=== PATIENT | female | born 2005 | race Caucasian/White ===

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

== ENCOUNTER 2025-09-04 11:17 | Emergency (ER) | payer OTHER, SELFPAY ==
--- NOTE | ~2025-09-04 | CT_ITS ---
CLINICAL HISTORY: RT lower quadrant pain CT abdomen and pelvis with contrast Comparison: None provided Findings: No consolidation or effusion. Unremarkable gallbladder. No biliary ductal dilatation. The liver, spleen, pancreas, adrenal glands and kidneys are unremarkable. No ureteral stones and no hydronephrosis or hydroureter. No perinephric stranding. No bowel obstruction, pneumoperitoneum, or pneumatosis. No free fluid or loculated fluid collection. Pelvic contents unremarkable. Bilateral ovarian follicles. Normal appendix. Normal size abdominal aorta. The bones are intact. IMPRESSION: No acute findings. Appendix is normal. This document has been electronically signed by: Nikky Lowry MD on 09/04/2025 15:51:18
[2025-09-04 11:20] VITALS: BP 141/72; PULSE 80; RESP 18; O2SAT 98; BMI 23.3
--- NOTE | 2025-09-04 11:20 | ED.ABDPAIN ---
HPI - Abdominal Pain General Chief Complaint: Abdominal Pain Stated Complaint: General Medical Time Seen by Provider: 09/04/25 12:11 Source: patient Mode of arrival: ambulatory Limitations: no limitations History of Present Illness HPI narrative: This is a 20 years old female referred to us from the urgent care because of right lower quadrant abdominal pain, a UA was done of the urgent care was negative COVID test was done was negative hCG was done negative as well MD elicited complaint: abdominal pain Pertinent past history: none Onset (ago): day(s) (1) Pain Consistency: constant Location: RLQ Severity: moderate Quality: cramping Radiation: none Migration to: no migration Exacerbating factors: nothing Related Data Patient : No Allergies Allergy/AdvReac Type Severity Reaction Status Date / Time No Known Allergies Allergy Verified 09/04/25 11:21 Review of Systems Constitutional: Reports no additional constitutional complaints Reports system reviewed and no additional complaints, except as documented [facility] Past Medical History Attestation statement: The following information was validated with the patient. [facility] Narrative: Denies any major medical problems Social History Social History Advance Directives: No Advance Directives Information Provided: No Do you have a plan to hurt others: No Plan Patient : No Physical Exam ED Exam Exam: No acute distress Vital Signs: Vital Signs - 24 hr 09/04/25 11:20 Pulse Rate 80 Respiratory Rate 18 Blood Pressure 141/72 H Pulse Oximetry 98 Oxygen Delivery Method Room Air BMI result Body Mass Index 23.3 Const General: cooperative HENMT Head: Yes normal to inspection General nose exam: Normal external nose present Face and sinus: Yes normal facial exam Neck Neck: Yes normal visual inspection Chest Chest palpation & inspection: normal inspection of the chest Resp Effort & Inspection: normal respiratory effort Auscultation: clear to auscultation bilaterally Cardio Jugular venous distension: no JVD Rate: regular rate Rhythm: regular rhythm GI Inspection: Yes normal to inspection Palpation (GI): Soft to palpation and Tenderness to palpation present (GI) in the RLQ Auscultation: normal bowel sounds Skin General skin exam: no rashes or lesions noted and elasticity normal Lesions: no lesions Rashes: no rashes Course Course Course Narrative: This is a Rapid Medical Examination (RME) performed by R. Raimonde PA-C in triage. Full HPI, ROS, assessment and treatment plan per primary provider in the Main ED. Hx: 20 yo F here for eval of RLQ abd pain x24 hours. nausea, no vomiting. no hx of abd surgeries. currently on her menstrual period. seen at - sent here for imaging. Plan: labs, UA Medical Decision Making Medical Decision Making [facility] Narrative: Patient is here for quadrant with the pain we will obtain imaging UA 16:26 CT scan of the abdomen and pelvis is negative normal appendix labs normal, I reviewed the UA done at the urgent care which was normal at this point I think the patient can be safely discharged home, discussed with the mother as well, mother and daughter comfortable with the plan Differential Diagnosis Differential Diagnoses: The differential diagnosis associated with the presentation includes Appendicitis/UTI/kidney stone Admission/Observation Consideration of admission/observation: Escalation of care including admission/observation considered Lab Data [facility] Lab Attestation statement: I reviewed the patient's lab results. 09/04/25 11:28 09/04/25 11:28 Labs: Lab Results 09/04/25 Range/Units 11:28 WBC 7.5 (4.8-10.8) X10*3/uL RBC 4.34 (4.20-5.50) X10*6/uL Hgb 13.8 (12.0-16.0) g/dl Hct 38.3 (37.0-47.0) % MCV 88.2 (80.0-98.0) fL MCH 31.8 (27.0-33.0) pg MCHC 36.0 H (31.0-35.0) g/dl RDW 11.5 (11.0-16.0) % Plt Count 362 (160-400) X10*3/uL MPV 8.7 L (9.4-12.3) fL Immature Gran % (Auto) 0.3 (0.0-0.4) % Neut % (Auto) 50.5 (45-73) % Lymph % (Auto) 36.2 (20-40) % Sevier % (Auto) 8.9 (2-11) % Eos % (Auto) 3.6 (0-4) % Baso % (Auto) 0.5 (0-2) % Lymph # (Auto) 2.7 (1.2-4.9) X10*3/uL Sevier # (Auto) 0.7 (0.1-1.2) X10*3/uL Eos # (Auto) 0.3 (0.0-0.4) X10*3/uL Baso # (Auto) 0.0 (0.0-0.2) X10*3/uL Abs Immat Gran (auto) 0.02 (0.00-0.03) X10*3/uL Absolute Neuts (auto) 3.8 (2.0-8.3) x10*3/uL Absolute Nucleated RBC 0.000 (0.0-0.012) X10*3/uL Nucleated RBC % (auto) 0.0 (0.0-0.2) /100WBC Sodium 141 (135-145) mmol/L Potassium 4.0 (3.3-5.1) mmol/L Chloride 109 H (96-108) mmol/L Carbon Dioxide 24 (22-29) mmol/L Anion Gap 12 (12-20) BUN 9 (9-16) mg/dL Creatinine 0.80 (0.5-1.4) mg/dL Estim Creat Clear Calc 100.9 Estimated GFR > 60 Random Glucose 95 (60-115) mg/dL Calcium 9.5 (8.4-10.2) mg/dL Magnesium 1.9 (1.6-2.6) mg/dL Total Bilirubin 0.6 (0.0-1.0) mg/dL AST 29 (5-31) U/L ALT 23 (0-31) U/L Alkaline Phosphatase 60 (39-117) U/L C-Reactive Protein 0.37 (< or = 0.50) mg/dL Total Protein 7.6 (6.5-8.0) g/dL Albumin 4.6 (3.5-5.0) g/dL Beta HCG, Quant < 2 mIU/mL Independent Interpretation I performed an independent interpretation of an: CT Scan Interpretation: No acute disease Radiology Impression Discussion of test interpretation with radiology: I have reviewed the radiologist's reading. Radiologist Impression: CT abdomen and pelvis with contrast Comparison: None provided Findings: No consolidation or effusion. Unremarkable gallbladder. No biliary ductal dilatation. The liver, spleen, pancreas, adrenal glands and kidneys are unremarkable. No ureteral stones and no hydronephrosis or hydroureter. No perinephric stranding. No bowel obstruction, pneumoperitoneum, or pneumatosis. No free fluid or loculated fluid collection. Pelvic contents unremarkable. Bilateral ovarian follicles. Normal appendix. Normal size abdominal aorta. The bones are intact. IMPRESSION: No acute findings. Appendix is normal. This document has been electronically signed by: Nikky Lowry MD on 09/04/2025 15:51:18 Dictated By: Nikky Lowry MD Signed By: <Electronically signed by Nikky Lowry MD in OV> 09/04/25 1552 Independent Historian Clinical information obtained from an independent historian. History obtained from or confirmed by: Parent (mother) Medications Administered Discontinued Medications Generic Name Dose Route Start Last Admin Trade Name Freq PRN Reason Stop Dose Admin Ketorolac Tromethamine 15 mg 09/04/25 16:02 09/04/25 16:06 Ketorolac Tromethamine 15 Mg/Ml Vial IVPUSH 09/04/25 16:03 15 mg ONCE ONE Administration Discharge Plan Discharge Clinical Impression: Abdominal pain Qualifiers: Abdominal location: right lower quadrant Qualified Code(s): R10.31 - Right lower quadrant pain Patient Disposition: Home, Self-Care Instructions: Abdominal Pain (ED) Additional Instructions: Follow-up with your primary care physician call and make an appointment, stay on liquid diet for 24 hour, return to the emergency room if you have vomiting if you have a fever if you have worsening of the pain. As we discussed the CAT scan was normal your blood work was normal Print Language: Italian
[2025-09-04 11:31] LABS: MANUAL DIFF FLAG NO
[2025-09-04 11:33] LABS: Hematocrit 38.3 % (37.0-47.0); Hemoglobin 13.8 g/dl (12.0-16.0); Imm Gran Abs Auto 0.02 X10*3/uL (0.00-0.03); Imm Gran Pct Auto 0.3 % (0.0-0.4); Lymphocytes Absolute Auto 2.7 X10*3/uL (1.2-4.9); Mean Corpuscular HGB Conc 36.0 g/dl (31.0-35.0); Mean Corpuscular Hemoglobin 31.8 pg (27.0-33.0); Mean Corpuscular Volume 88.2 fL (80.0-98.0); NRBC Abs Auto 0.000 X10*3/uL (0.0-0.012); NRBC Pct Auto 0.0 /100WBC (0.0-0.2); Platelet Count 362 X10*3/uL (160-400); Red Blood Count 4.34 X10*6/uL (4.20-5.50); White Blood Count 7.5 X10*3/uL (4.8-10.8)
--- OUTSIDE RECORDS SUMMARY | 2025-09-04 12:16 | XMS_ITS | Encounter Summary ---
Author Organization [facility] Address [address] [place] [address] Care Team Providers Care Sales Forecast Analyst Name Role Phone María Elena Castelan MD Primary Care Provider Anitra Kulkarni Primary Care Provider [phone] Encounter Details Date Type Department Care Team ([facility] st Contact Info) Description 06/13/2015 Orders Only [facility] [address] [place] [phone] María Elena Castelan MD Social History Tobacco Use Types Packs/Day Years Used Date Smoking Tobacco: Never Assessed Comments Unknown Sex and Gender Information Value Date Recorded Sex Assigned at Not on file Legal Sex Female 9:23 PM EDT Gender Identity Not on file Sexual Orientation Not on file documented as of this encounter Plan of Treatment Not on file documented as of this encounter Procedures * Due to [place] state law, this organization might not be sharing negative HIV tests. Procedure Name Priority Date/Time Associated Diagnosis Comments C-REACTIVE PROTEIN (CRP) - INFLAMMATION Routine 06/13/2015 11:27 AM EDT Chronic abdominal pain CBC INCLUDES DIFFERENTIAL AND PLATELET COUNT Routine 06/13/2015 11:27 AM EDT Chronic abdominal pain CELIAC DISEASE COMPREHENSIVE PANEL Routine 06/13/2015 11:27 AM EDT Chronic abdominal pain COMPREHENSIVE METABOLIC PANEL WITH GFR Routine 06/13/2015 11:27 AM EDT Chronic abdominal pain documented in this encounter Results * Due to [place] state law, this organization might not be sharing negative HIV tests. * C-REACTIVE PROTEIN (CRP) - INFLAMMATION (06/13/2015 11:27 AM EDT) C reactive protein <0.10 <0.80 mg/dL [facility] Comment: {C-REACTIVE PROTEIN {[id number]) Please be advised that patients taking Carboxypenicillins may exhibit falsely decreased C-Reactive Protein levels due to an analytical interference in this assay. 06/13/2015 11:2 7 AM EDT 06/13/2015 10:42 PM EDT Narrative Resulting Agency Comment [id number] María Elena Castelan MD LABORATORY Final Result [facility] [address] [place] [address] * COMPREHENSIVE METABOLIC PANEL WITH GFR (06/13/2015 11:27 AM EDT) Glucose 74 65 - 99 mg/dL [facility] Comment: {GLUCOSE {[id number]) Fasting reference interval Urea Nitrogen Blood (BUN) 11 7 - 20 mg/dL [facility] Comment:{UREA NITROGEN (BUN) {[id number]) Creatinine 0.50 0.20 - 0.73 mg/dL [facility] Comment: {CREATININE {[id number]) Patient is <18 years old. Unable to calculate eGFR. BUN/Creatinine Ratio NOT APPLICABLE 6 (calc) [facility] Comment:{BUN/CREATININE RATI O {[id number]) Sodium 139 135 - 146 mmol/L [facility] Comment:{SODIUM {[id number]) Potassium 4.2 3.8 - 5.1 mmol/L [facility] Comment:{POTASSIUM {[id number]) Chloride 105 98 - 110 mmol/L [facility] Comment:{CHLORIDE {[id number]) Carbon dioxide 23 19 - 30 mmol/L [facility] Comment:{CARBON DIOXIDE {[id number]) Calcium 10.0 8.9 - 10.4 mg/dL [facility] Comment:{CALCIUM {[id number]) Protein Total (Serum) 7.3 6.3 - 8.2 g/dL [facility] Comment:{PROTEIN, TOTAL {[id number]) Albumin 4.8 3.6 - 5.1 g/dL [facility] Comment:{ALBUMIN {[id number]) Globulin 2.5 2.0 - 3.8 g/dL (calc) [facility] Comment:{GLOBULIN {[id number]) Albumin/Globuli n 1.9 1.0 - 2.5 (calc) [facility] Comment:{ALBUMIN/GLOBULIN RA MEG {[id number]) Bilirubin Total 0.4 0.2 - 0.8 mg/dL [facility] Comment:{BILIRUBIN, TOTAL {[id number]) Alkaline phosphatase 270 184 - 415 U/L [facility] Comment:{ALKALINE PHOSPHATAS E {[id number]) AST (SGOT) 24 12 - 32 U/L [facility] Comment:{AST {[id number]) ALT (SGPT) 13 8 - 24 U/L [facility] Comment:{ALT {[id number]) 06/13/2015 11:2 7 AM EDT 06/13/2015 10:42 PM EDT Narrative [facility] - 06/14/2015 9:10 AM EDT Please note that this estimated GFR does not include an adjustment for the patient's height or weight, and can therefore, be viewed as reliable only for patients with heights between 60 and 72 . More precise quantification using a 24-hour urine sample or height-based algorithm is recommended for patients outside of this range of height and for those individuals with more precise needs for GFR calculation. Resulting Agency Comment [id number] María Elena Castelan MD LABORATORY Final Result [facility] [address] [place] [address] * (ABNORMAL) CBC INCLUDES DIFFERENTIAL AND PLATELET COUNT (06/13/2015 11:27 AM EDT) WBC 5.6 4.5 - 13.5 Thousand/u L [facility] Comment:{WHITE BLOOD CELL CO UNT {[id number]) RBC 4.66 4.00 - 5.20 Million/uL [facility] Comment:{RED BLOOD CELL COUN T {[id number]) Hemoglobin 13.9 11.5 - 15.5 g/dL [facility] Comment:{HEMOGLOBIN {[id number]) Hematocrit 42.0 35.0 - 45.0 % [facility] Comment:{HEMATOCRIT {[id number]) MCV 90.1 77.0 - 95.0 fL [facility] Comment:{MCV {[id number]) MCH 29.8 25.0 - 33.0 pg [facility] Comment:{MCH {[id number]) MCHC 33.0 31.0 - 36.0 g/dL [facility] Comment:{MCHC {[id number]) RDW 12.4 11.0 - 15.0 % [facility] Comment:{RDW {[id number]) PLT 329 140 - 400 Thousand/u L [facility] Comment:{PLATELET COUNT {[id number]) MPV 7.4(L) 7.5 - 11.5 fL [facility] Comment:{MPV {[id number]) Neutrophils # 1837 1500 - 8000 cells/uL [facility] Comment:{ABSOLUTE NEUTROPHIL S {[id number]) Lymphocytes # 2873 1500 - 6500 cells/uL [facility] Comment:{ABSOLUTE LYMPHOCYTE S {[id number]) Monocytes # 549 200 - 900 cells/uL [facility] Comment:{ABSOLUTE MONOCYTES {[id number]) Eosinophils # 314 15 - 500 cells/uL [facility] Comment:{ABSOLUTE EOSINOPHIL S {[id number]) Basophils # 28 0 - 200 cells/uL [facility] Comment:{ABSOLUTE BASOPHILS {[id number]) Neutrophils % 32.8 % [facility] Comment:{NEUTROPHILS {[id number]) Lymphocytes % 51.3 % [facility] Comment:{LYMPHOCYTES {[id number]) Monocytes % 9.8 % [facility] Comment:{MONOCYTES {[id number]) Eosinophils % 5.6 % [facility] Comment:{EOSINOPHILS {[id number]) Basophils % 0.5 % [facility] Comment:{BASOPHILS {[id number]) 06/13/2015 11:2 7 AM EDT 06/13/2015 10:42 PM EDT Narrative Resulting Agency Comment [id number] María Elena Castelan MD LAB SAME DAY RESULT Final Resul t Performing Organization Address City/[facility] Co de Phone Number [facility] [address] [place] [address] * CELIAC DISEASE COMPREHENSIVE PANEL (06/13/2015 11:27 AM EDT) INTERPRETATION SEE NOTE [facility] Comment: {INTERPRETATION {[id number]) No serological evidence of celiac disease. tTG IgA may normalize in individuals with celiac disease who maintain a gluten-free diet. Consider HLA DQ2 and DQ8 testing to rule out celiac disease. Celiac disease is extremely rare in the absence of DQ2 or DQ8. (TTG) AB, IGA 1 U/mL [facility] Comment: {TISSUE TRANSGLUTAMINASE AB, IGA {[id number]) Value Interpretation ----- <4 No Antibody Detected > or = 4 Antibody Detected IgA 175 41 - 368 mg/dL [facility] Comment:{IMMUNOGLOBULIN A {[id number]) 06/13/2015 11:2 7 AM EDT 06/13/2015 10:42 PM EDT Narrative Resulting Agency Comment [id number] María Elena Castelan MD LABORATORY Final Result Performing Organization Address [facility] Co de Phone Number [facility] [address] [place] [address] documented in this encounter Visit Diagnoses Diagnosis Chronic abdominal pain Abdominal pain, unspecified site documented in this encounter Care Teams Sales Forecast Analyst Relationship Specialty Start Date End Date María Elena Castelan MD PCP - General 05 05/16/16 Anitra Marques [facility] [address] [address] PCP - General Pediatrics 05/17/16 documented as of this encounter
--- OUTSIDE RECORDS SUMMARY | 2025-09-04 12:16 | XMS_ITS | Clinical Summary ---
Author Organization [facility] sp[facility] Address [address] [place] [address] Phone Care Team Providers Care Labor Arbitrator Name Role Phone Anitra Marques MD Unavailable [phone] Anitra Marques MD Primary Care Provider [phone] Anitra Marques MD Unavailable [phone] Olayinka Jha MD Unavailable [phone] Jose Martin Guajardo MD Unavailable [phone] Farrukh Cueto MD Unavailable [phone] Whitney Linares Unavailable [phone] Allergies No known active allergies Medications Aurovela 1.5/30, 21, 1.5-30 mg-mcg tabletIndication s:Please take as previously prescribed Take 1 tablet by mouth 1 time each day. Active albuterol HFA 90 mcg/act inhalerIndicatio ns:Please take as previously prescribed Inhale 2 puffs every 4 hours if needed (Exercise). 05/01/2024 Active Samina Alonso [facility] inhaler 1 each 4 times a day as needed (exercise). 05/02/2024 Active levothyroxine 25 mcg tablet Take 25 mcg by mouth every morning. 02/15/2025 Active Active Problems Problem Noted Date Diagnosed Date ROE positive 03/04/2025 Raynaud's disease without gangrene 03/04/2025 Hypothyroidism 03/04/2025 Concussion with no loss of consciousness 025 Nonsustained supraventricular tachycardia 2023 Wide-complex tachycardia 05/13/2024 Tachycardia 04/17/2024 Chronic abdominal pain 04/17/2024 Left ovarian cyst 10/24/2021 Overview (08/26/2024): U/S done in ED on 10/24/21. Menorrhagia with irregular cycle 08/03/2021 Dysmenorrhea 09/21/2020 Irritable bowel syndrome with constipation 08/20 Overview (08/26/2024): ED visit 09/2021. 10/30/21 - GI visit; probable long-standing IBS; started on Culturelle bid; work up ordered to r/o celiac and IBD and u/s for evaluation of biliary pathology 02/12/22 - normal endoscopic exam; likely IBS. Has used Miralax off and on. Nearly daily complaint of stomach ache. Update - did very well on daily Miralax, changed to Pedialax at recommendation of [facility], symptoms recurred when off Pedialax for several weeks. Encouraged to go back on medication. Resolved Problems Problem Noted Date Diagnosed Date Resolved Date Iron excess 08/26/2024 03/04/2025 Family History Medical History Relation Name Comments Hypothyroidism Father Heart attack Maternal Grandmother Heart attack Paternal Grandfather Heart attack Paternal Grandmother Clotting disorder Neg Hx [id number] deficiency Neg Hx Malig Hyperthermia Neg Hx Mastocytosis Neg Hx Pseudochol deficiency Neg Hx Sudden Neg Hx Relation Name Status Comments Father Maternal Grandmother Paternal Grandfather Paternal Grandmother Social History Tobacco Use Types Packs/Day Years Used Date Smoking Tobacco: Never Smokeless Tobacco: Never Tobacco Cessation:Counseling Given: Not Answered Alcohol Use Standard Drinks/Week Comments Never 0 (1 standard drink = 0.6 oz pur e alcohol) Comments Unknown Sex and Gender Information Value Date Recorded Sex Assigned at Not on file Legal Sex Female 11:45 PM EDT Gender Identity Not on file Sexual Orientation Not on file Last Filed Vital Signs Vital Sign Reading Time Taken Comments Blood Pressure 117/61 02/08/2025 10:41 AM EDT Pulse 90 02/08/2025 10:41 AM EDT Temperature 36.6 C (97.9 F) 09/15/2024 5:00 PM EST Respiratory Rate 15 09/15/2024 5:00 PM EST Oxygen Saturation 100% 02/08/2025 10: 41 AM EDT Inhaled Oxygen Concentration - - Weight 70.6 kg (155 lb 10.3 oz) 025 10:41 AM EDT Height 165.2 cm (5' 5.04 ) 02/08/2025 1 0:41 AM EDT Body Mass Index 25.87 02/08/2025 10:41 AM EDT Plan of Treatment Health Maintenance Due Date Last Done Comments Chlamydia and Gonorrhea Screening 2005 HIV Screening 2005 Meningococcal B Vaccine (1 of 2 - Standard) 2021 Hepatitis C Screening 2023 Influenza Vaccine (#1) 2025 , 09/21/2020, 08/10/2011, Additional history exists DTaP/Tdap/Td Vaccines (7 - Td or Tdap) 08/01/2026 08/01/2016, 07/27/2009, 10/28/2006, Additional history exists Anemia Screening 09/14/2029 09/14/2024, , 08/26/2024, Additional history exists Hepatitis B Vaccines Completed 01/18/2006, 2005, 2005, Additional history exists Pneumococcal Vaccine: Pediatrics (0 to 5 Years) and At-Risk Patients (6 to 49 Years) Aged Out 07/29/2006, 01/18/2006, 2005, Additional history exists No longer eligible based on patient's age to complete this topic HIB Vaccines Completed 10/28/2006, 12/30, 2005, Additional history exists Hepatitis A Vaccines Completed 01/27/2007, 07/29/20 06 IPV Vaccines Completed 07/27/2009, 12/30, 2005, Additional history exists MMR Vaccines Completed 07/27/2009 Varicella Vaccines Completed 07/27/2009, 10/28/2006 HPV Vaccines Completed 03/18/2019, 09/16/2018 Meningococcal Vaccine Completed 09/21/2021, 016 Rotavirus Vaccines Aged Out No longer eligible based on patient's age to complete this topic Procedures Procedure Name Priority Date/Time Associated Diagnosis Comments CBC WITH AUTO DIFFERENTIAL - NON ORDERABLE Routine 09/14/2024 1:40 PM EST Nonsustained supraventricular tachycardia (HCC) from Last 3 Months or Most Recently Relevant to Health Maintenance Results * (ABNORMAL) CBC and differential (09/14/2024 1:40 PM EST) WBC 6.11 4.94 - 10.04 K cells/uL LAB HEMATOLOGY METHOD 09/14/2024 3:13 PM EST [facility] RBC 4.54 4.03 - 4.91 M cells/uL LAB HEMATOLOGY METHOD 09/14/2024 3:13 PM EST [facility] Hemoglobin 14.1 11.4 - 14.8 g/dL LAB HEMATOLOGY METHOD 09/14/2024 3:13 PM [facility] Hematocrit 40.6 35.5 - 44.6 % LAB HEMATOLOGY METHOD 09/14/2024 3:13 PM EST [facility] MCV 89.4 80.7 - 93.7 fL LAB HEMATOLOGY METHOD 09/14/2024 3:13 PM EST [facility] MCH 31.1 25.7 - 31.2 pg LAB HEMATOLOGY METHOD 09/14/2024 3:13 PM EST [facility] MCHC 34.7(H) 31.3 - 34.0 g/dL LAB HEMATOLOGY METHOD 09/14/2024 3:13 PM [facility] RDW 11.9 11.9 - 14.8 % LAB HEMATOLOGY METHOD 09/14/2024 3:13 PM EST [facility] Platelets 328 199 - 352 K cells/uL LAB HEMATOLOGY METHOD 09/14/2024 3:13 PM [facility] MPV 8.8(L) 9.6 - 11.9 fL LAB HEMATOLOGY METHOD 09/14/2024 3:13 PM EST [facility] Nucleated RBCs % 0.0 % LAB HEMATOLOGY METHOD 09/14/2024 3:13 PM [facility] Absolute Nucleated RBC Count 0.00 K cells/uL LAB HEMATOLOGY METHOD 09/14/2024 3:13 PM [facility] Neutrophils and Bands % 36.2(L) 46.0 - 68.6 % LAB HEMATOLOGY METHOD 09/14/2024 3:13 PM [facility] Lymphocytes % 39.9 21.8 - 42.1 % LAB HEMATOLOGY METHOD 09/14/2024 3:13 PM EST [facility] Monocytes % 9.2 5.6 - 10.2 % LAB HEMATOLOGY METHOD 09/14/2024 3:13 PM EST [facility] Eosinophils % 13.7(H) 0.6 - 3.8 % LAB HEMATOLOGY METHOD 09/14/2024 3:13 PM EST [facility] Basophils % 0.8 0.3 - 0.9 % LAB HEMATOLOGY METHOD 09/14/2024 3:13 PM EST [facility] Immature Granulocytes % 0.2 0.2 - 0.5 % LAB HEMATOLOGY METHOD 09/14/2024 3:13 PM EST [facility] Absolute Neutrophil Count 2.21(L) 2.43 - 6.42 K cells/uL LAB HEMATOLOGY METHOD 09/14/2024 3:13 PM EST [facility] Absolute Lymphocyte Count 2.44 1.51 - 2.99 K cells/uL LAB HEMATOLOGY METHOD 09/14/2024 3:13 PM EST [facility] Absolute Monocyte Count 0.56 0.36 - 0.77 K cells/uL LAB HEMATOLOGY METHOD 09/14/2024 3:13 PM EST [facility] Absolute Eosinophil Count 0.84(H) 0.04 - 0.27 K cells/uL LAB HEMATOLOGY METHOD 09/14/2024 3:13 PM EST [facility] Absolute Basophil Count 0.05 0.02 - 0.06 K cells/uL LAB HEMATOLOGY METHOD 09/14/2024 3:13 PM EST [facility] Absolute Immature Granulocyte Count 0.01 0.01 - 0.04 K cells/uL LAB HEMATOLOGY METHOD 09/14/2024 3:13 PM EST [facility] Blood Venous structure / Unknown Venipuncture / Unknown 09/14/2024 1:40 PM EST 09/14/2024 2:48 PM EST Terrell Vu CNP LAB BLOOD ORDERABLES Final Re sult [facility] [address] [place] [address], from Last 3 Months or Most Recently Relevant to Health Maintenance Insurance [facility] [place] [address] [place] [address] [place] [address] [facility] [employer] [place] Advance Directives For more information, please contact: [phone] (Available ) Documents on File Type Date Recorded 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 Advance Directives and Livin g Will 09/16/2024 10:39 PM Care Teams Labor Arbitrator Relationship Specialty Start Date End Date Anitra Marques MD [address] [place] [id number] PCP - Insurance PCP 05/14/19 Anitra Marques MD [address] [place] [address] PCP - General 10/23/20 Anitra Marques MD [address] [place] [address] PCP - Clinical PCP 10/23/20 Whitney Linares [address] [address] PCP - Insurance Identified PCP 12/31/24 Olayinka Jha MD [address] [place] [address] Referring Provider Pediatric Cardiology 05/08/24 Jose Martin Guajardo MD [address] [place] [address] Consulting Physician Pediatric Cardiology 05/08/24 Farrukh Cueto MD [address] [place] [address] Pediatric Hematology 08/26/24
--- OUTSIDE RECORDS SUMMARY | 2025-09-04 12:16 | XMS_ITS | Encounter Summary ---
Author Organization [facility] Address [address] [place] [address] Care Team Providers Care Stress Test Technician Name Role Phone María Elena Castelan MD Primary Care Provider Anitra Kulkarni Primary Care Provider [phone] Encounter Details Date Type Department Care Team ([facility] st Contact Info) Description 11/15/2010 Orders Only [facility] [address] [place] [phone] María Elena Castelan MD Social History Tobacco [...] of this encounter Procedures * Due to [place] state law, this organization might not be sharing negative HIV tests. Procedure Name Priority Date/Time Associated Diagnosis Comments BASIC METABOLIC PANEL W/GLOMERULAR FILTRATION RATE (EGFR) Routine 11/15/2010 Abdominal pain C-REACTIVE PROTEIN (CRP), QUANTITATIVE, SERUM INFLAMMATION Routine 11/15/2010 Abdominal pain CELIAC DISEASE COMPREHENSIVE PANEL Routine 11/15/2010 Abdominal pain SED RATE ESR Routine 11/15/2010 Abdominal pain CBC 5 PART DIFF Routine 11/15/2010 Abdominal pain ALANINE AMINOTRANSFERASE (ALT), SERUM Routine 11/15/2010 Abdominal pain documented in this encounter Results * Due to [place] state law, this organization might not be sharing negative HIV tests. * BASIC METABOLIC PANEL W/GLOMERULAR FILTRATION RATE (EGFR) (11/15/2010) CALCIUM 10.3 8.9 - 10.4 MG/DL [facility] BUN 13 7 - 20 MG/DL [facility] CREATININE 0.44 0.29 - 0.68 MG/DL [facility] Glucose 87 65 - 99 MG/DL [facility] SODIUM 142 135 - 146 MMOL/L [facility] POTASSIUM 4.3 3.8 - 5.1 MMOL/L [facility] CHLORIDE 108 98 - 110 MMOL/L [facility] CARBON DIOXIDE 25 20 - 30 MMOL/L [facility] GFR SEE TEXT 60 AND ABOVE [facility] Comment: UNITS: ML/MIN/1.73 SQ METERS PATIENT IS <18 YEARS OLD. UNABLE TO CALCULATE. EGFR SEE TEXT 60 AND ABOVE [facility] Comment: UNITS: ML/MIN/1.73 SQ METERS PATIENT IS <18 YEARS OLD. UNABLE TO CALCULATE. 11/15/2010 11/15/2010 11: 25 PM EST Narrative [facility] - 11/16/2010 5:37 AM EST Please note that this estimated GFR does [...] with more precise needs for GFR calculation. María Elena Csatelan MD LABORATORY Final Result [facility] [address] [place] [address] * C-REACTIVE PROTEIN (CRP), QUANTITATIVE, SERUM INFLAMMATION (11/15/2010) C REACTIVE PROTEIN (CRP) < 0.1 0 - 0.7 MG/DL [facility] 11/15/2010 11/15/2010 11: 25 PM EST María Elena Castelan MD LABORATORY Final Result Performing Organization Address [facility] de Phone Number [facility] [address] [place] [address] * SED RATE ESR (11/15/2010) Pathologist [facility] ESR (ERYTHROCYTE SEDIMENTATION RATE) 1 0 - 20 MM/HR [facility] 11/15/2010 11/15/2010 11: 25 PM EST María Elena Castelan MD LAB SAME DAY RESULT Final Resul t Performing Organization Address [facility] de Phone Number [facility] [address] [place] [address] * CELIAC DISEASE COMPREHENSIVE PANEL (11/15/2010) Pathologist [facility] TTG IGA AB <3 <5 U/ML [facility] Comment: REFERENCE RANGE: <5 U/ML NEGATIVE 5-8 U/ML EQUIVOCAL >8 U/ML POSITIVE IGA 126 33 - 235 MG/DL [facility] 11/15/2010 11/15/2010 11: 25 PM EST María Elena Castelan MD LABORATORY Final Result Performing Organization Address [facility] de Phone Number [facility] [address] [place] [address] * ALANINE AMINOTRANSFERASE (ALT), SERUM (11/15/2010) Pathologist [facility] ALT (SGPT) 16 8 - 24 U/L [facility] 11/15/2010 11/15/2010 11: 25 PM EST María Elena Castelan MD LAB SAME DAY RESULT Final Resul t Performing Organization Address [facility] de Phone Number [facility] [address] [place] [address] * (ABNORMAL) CBC 5 PART DIFF (11/15/2010) Pathologist [facility] WHITE BLOOD COUNT 8.4 5.0 - 16.0 THOUS/UL [facility] RBC 4.22 3.90 - 5.50 MIL/UL [facility] Hemoglobin 12.7 11.5 - 14.0 G/DL [facility] HCT (HEMATOCRIT) 37.0 34.0 - 42.0 % [facility] MCV 87.8(H) 73.0 - 87.0 FL [facility] MCH 30.2(H) 24.0 - 30.0 PG [facility] MCHC 34.4 31.0 - 36.0 G/DL [facility] BAND % 0 0 - 5 % [facility] NEUTROPHIL % 30(L) 36 - 60 % [facility] LYMPHOCYTE % 52(H) 30 - 50 % [facility] MONOCYTE % 9 0 - 14 % [facility] EOSINOPHIL % 9(H) 0 - 5 % [facility] BASOPHIL % 0 0 - 3 % [facility] ATYPICAL LYMPHOCYTE % 0 0 - 5 % [facility] PLATELETS 312 140 - 400 THOUS/UL [facility] BANDS # 0 0 - 750 CELLS/MCL [facility] NEUTROPHILS # 2520 1500 - 8500 CELLS/MCL [facility] LYMPHOCYTES # 4368 2000 - 8000 CELLS/MCL [facility] MONOCYTES # 756 200 - 900 CELLS/MCL [facility] EOSINOPHILS # 756(H) 15 - 600 CELLS/MCL [facility] BASOPHILS # 0 0 - 250 CELLS/MCL [facility] ATYPICAL LYMPHOCYTES # 0 0 - 200 CELLS/MCL [facility] RDW 12.2 11.0 - 15.0 % [facility] MPV 7.3(L) 7.5 - 11.5 FL [facility] 11/15/2010 11/15/2010 11: 25 PM EST us María Elena Castelan MD LAB SAME DAY RESULT Final Resul t Performing Organization Address City/State/[facility] Co de Phone Number [facility] [address] [place] [address] documented in this encounter Visit Diagnoses Diagnosis Abdominal pain Abdominal pain, unspecified site documented in this encounter Care Teams Stress Test Technician Relationship Specialty Start Date End Date María Elena Castelan MD PCP - General 05 05/16/16 Anitra Marques [facility] [address] [address] PCP - General Pediatrics 05/17/16 documented as of this encounter
--- OUTSIDE RECORDS SUMMARY | 2025-09-04 12:16 | XMS_ITS | Encounter Summary ---
Author Organization [facility] [place] [facility] Address [address] [place] [address] Phone Care Team Providers Care Faculty I On Call Medical Assistant Name Role Phone Anitra Marques MD Unavailable [phone] Anitra Marques MD Primary Care Provider [phone] Anitra Marques MD Unavailable [phone] Anitra Marques MD Unavailable [phone] Olayinka Jha MD Unavailable [phone] Jose Martin Guajardo MD Unavailable [phone] Farrukh Cueto MD Unavailable [phone] Whitney Linares Unavailable [phone] Reason for Referral * Imaging (Routine) - Closed Specialty Diagnoses / Procedures Referred By Contac t Referred To Contact Pediatric Cardiology Diagnoses Tachycardia Procedures Stress Test - (In Clinic) NH CV STRS TST XERS&/OR RX CONT ECG TRCG ONLY Joleen Stovall CNP [address] [place] [address] Phone: tel: fax: Referral ID Status Reason Start Date Expiration Date V isits Requested Visits Authorized [id number] Closed Perform Procedure 05/08/2024 05/08/2025 1 1 * (Routine) - Closed Specialty Diagnoses / Procedures Referred By Contac t Referred To Contact Pediatric Cardiology Procedures Follow Up In Pediatric Cardiology Joleen Stovall CNP [address] [place] [address] Phone: tel: fax: Jose Martin Guajardo MD [address] [place] [address] Phone: tel: fax: Referral ID Status Reason Start Date Expiration Date Visits Re quested Visits Authorized [id number] Closed 05/08/2024 05/08/2025 1 1 Encounter Details Date Type Department Care Team (Late st Contact Info) Description 05/08/2024 Orders Only [facility] [address] [place] [address] Joleen Stovall CNP [address] [place] [address] Tachycardia (Primary Dx) Social History Tobacco Use Types Packs/Day Years Used Date Smoking Tobacco: Never Assessed Comments Unknown Sex and Gender Information Value Date Recorded Sex Assigned at Not on file Legal Sex Female 11:45 PM EDT Gender Identity Not on file Sexual Orientation Not on file documented as of this encounter Plan of Treatment Not on file documented as of this encounter Results * Stress Test - (In Clinic) (05/11/2024 11:42 AM EDT) Anatomical Region Laterality Modality Heart Other 05/11/2024 11:0 0 AM EDT us Joleen Stovall CNP CV STRESS PROCEDURES Edited R esult - Final * ECG 15 Lead (ECG6) - (In Clinic) (05/11/2024 10:23 AM EDT) Ventricular Rate 84 BPM CV MUSE Atrial Rate 84 BPM CV MUSE NH Interval 142 ms CV MUSE QRSD Interval 80 ms CV MUSE QT Interval 372 ms CV MUSE QTC Interval 439 ms CV MUSE P [place] 53 degrees CV MUSE R [place] 51 degrees CV MUSE T Wave [place] 29 degrees CV MUSE QTcF 416 ms CV MUSE 05/11/2024 10:2 6 AM EDT 05/17/2024 11:46 PM EDT Narrative CV MUSE - 05/17/2024 11:46 PM EDT ICDCODE: Normal ECG Procedure Note Jose Martin Guajardo MD - 05/17/2024 ICDCODE: Normal ECG us Joleen Stovall ASSISTANT CLINICAL DIRECTOR ECG ORDERABLES Final Result CV MUSE documented in this encounter Visit Diagnoses Diagnosis Tachycardia- Primary Unspecified tachycardia Tachycardia Unspecified tachycardia documented in this encounter Care Teams Faculty I On Call Medical Assistant Relationship Specialty Start Date End Date Anitra Marques MD [address] [place] [address] PCP - Insurance PCP 05/14/19 Anitra Marques MD [address] [place] [address] PCP - General 10/23/20 Anitra Marques MD [address] [place] [address] PCP - Clinical PCP 10/23/20 Anitra Marques MD [address] [place] [address] PCP - Insurance Identified PCP 03/16/24 12/30/24 Whitney Linares [address] [address] PCP - Insurance Identified PCP 12/31/24 Olayinka Jha MD [address] [place] [address] Referring Provider Pediatric Cardiology 05/08/24 Jose Martin Guajardo MD [address] [place] [address] Consulting Physician Pediatric Cardiology 05/08/24 Farrukh Cueto MD [address] [place] [address] Pediatric Hematology 08/26/24 documented as of this encounter
--- OUTSIDE RECORDS SUMMARY | 2025-09-04 12:16 | XMS_ITS | Encounter Summary ---
Author Organization [facility] Address [address] [place] [address] Care Team Providers Care Cotton Bag Clipper Name Role Phone María Elena Castelan MD Primary Care Provider Anitra Kulkarni Primary Care Provider [phone] Encounter Details Date Type Department Care Team ([facility] st Contact Info) Description 07/23/2007 Orders Only [facility] [address] [place] [phone] María Elena Castelan MD Social History Tobacco [...] of this encounter Procedures * Due to [place] [employer] law, this organization might not be sharing negative HIV tests. Procedure Name Priority Date/Time Associated Diagnosis Comments CBC W/O DIFFERENTIAL Routine 07/23/2007 SCREENING FOR OTHER AND UNSPECIFIED DEFICIENCY ANEMIA LEAD, BLOOD Routine 07/23/2007 SCREENING FOR CHEMICAL POISONING AND OTHER CONTAMINATION documented in this encounter Results * Due to [place] [employer] law, this organization might not be sharing negative HIV tests. * LEAD, BLOOD (07/23/2007) LEAD < 3 0 - 9 UG/DL [facility] (CLIA# [id number]) Comment: LEAD SOURCE: VENOUS 10-14 THRESHOLD 15-19 SUSPECT LEVEL >19 HIGH 07/23/2007 07/23/2007 9:4 3 PM EDT María Elena Castelan MD LABORATORY Final Result [facility] (CLIA# [id number]) [address] [place] [address] * (ABNORMAL) CBC W/O DIFFERENTIAL (07/23/2007) WHITE BLOOD COUNT 10.7 5.0 - 16.0 THOUS/UL [facility] (CLIA# [id number]) RBC 4.26 3.90 - 5.50 MIL/UL [facility] (CLIA# [id number]) Hemoglobin 12.7 11.5 - 14.0 G/DL [facility] (CLIA# [id number]) HCT (HEMATOCRIT) 36.0 34.0 - 42.0 % [facility] (CLIA# [id number]) MCV 84.4 73.0 - 87.0 FL [facility] (CLIA# [id number]) MCH 29.7 24.0 - 30.0 PG [facility] (CLIA# [id number]) MCHC 35.2 31.0 - 36.0 G/DL [facility] (CLIA# [id number]) PLATELETS 387 140 - 400 THOUS/UL [facility] (CLIA# [id number]) RDW 13.1 11.0 - 15.0 % [facility] (CLIA# [id number]) MPV 6.6(L) 7.5 - 11.5 FL [facility] (CLIA# [id number]) 07/23/2007 07/23/2007 9:4 3 PM EDT María Elena Castelan MD LABORATORY Final Result Performing Organization Address City/[facility]/ZIP Co de Phone Number [facility] (CLIA# [id number]) [address] [place] [address] documented in this encounter Visit Diagnoses Diagnosis SCREENING FOR OTHER AND UNSPECIFIED DEFICIENCY ANEMIA Screening for other and unspecified deficiency anemia SCREENING FOR CHEMICAL POISONING AND OTHER CONTAMINATION Screening for chemical poisoning and other contamination documented in this encounter Care Teams Cotton Bag Clipper Relationship Specialty Start Date End Date María Elena Castelan MD PCP - General 05 05/16/16 Anitra Marques [facility] [address] [address] PCP - General Pediatrics 05/17/16 documented as of this encounter
--- OUTSIDE RECORDS SUMMARY | 2025-09-04 12:16 | XMS_ITS | Clinical Summary ---
Author Organization [facility] Address [address] [place] [id number] Phone Care Team Providers Care Log Handler Name Role Phone Anitra Marques MD Unavailable [phone] Whitney Linares DO Primary Care Provider [phone] Allergies No known active allergies Medications albuterol 90 mcg/actuation inhalerIndications :Chronic cough INHALES 1-2 PUFFS EVERY 4-6 HOURS NEEDED FOR WHEEZING. 18 g 4 Active inhaler spacing device (AEROCHAMBER,BREAT HERITE) SpcrIndications:Ch ronic cough Use with albuterol inhaler. Inhale 2 puffs with a spacer every 4-6 hours as needed 1 each 4 Active AUROVELA 1.5/30, 21, 1.5-30 mg-mcg TabIndications:Enc ounter for gynecological examination without abnormal finding TAKE 1 TABLET BY MOUTH EVERY DAY 84 tablet 3 5 Active levothyroxine (SYNTHROID,LEVOTHR OID) 25 MCG tablet TAKE 1 TABLET BY MOUTH EVERY DAY IN THE MORNING 90 tablet 5 Active Active Problems Problem Noted Date Diagnosed Date Menorrhagia with regular cycle 04/23/2025 Assessment & Plan (04/23/2025 2:34 PM EDT): Monthly moderate menses for the past few months after initiating and then discontinuation of Synthroid Pt declines exam today Plan: pt to track menses over next few months and call with concerns Continue with OCP, risks reviewed Encounter for general adult medical examination with abnormal findings 03/29/2025 Assessment & Plan (03/29/2025 4:57 PM EDT): Immunizations: The patient is due for a tetanus vaccination. The patient expressed some confusion regarding the need for a tuberculosis (TB) test, indicating that she does not recall having undergone such testing previously. - Immunizations reviewed. - Ordered and administered tetanus vaccination Screening labs: CV risk screening: STI: Due for screening. - Ordered labs for Chlamydia Trachomatis and Neisseria Gonorrhoeae Nucleic Acid Detection; Future. Other: Dermatology screening: Ob-ssis developer care: The patient also reports starting her menstrual period today, describing it as light and not heavy, and noted that she has not used tampons in about a year. Social screening: The patient is involved in summer activities, including soccer and summer school. 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 PMFSH: - Reviewed. Orders: Chlamydia Trachomatis and Neisseria Gonorrhoeae Nucleic Acid Detection; Future Rash and other nonspecific skin eruption 025 Assessment & Plan (03/29/2025 4:57 PM EDT): The patient has undergone blood work recently for autoimmune disease, which indicated elevated levels that were concerning, but subsequent tests show that the levels are no longer as high. She was seen by rheumatology, Dr. Canales. The patient has seen a administration internship regarding these blood results, but the specialist was unable to determine the cause of the initial elevation. The patient is also following up with an agency director due to significant rashes and other allergy-related symptoms. The agency director mentioned that sometimes tests can yield positive results without corresponding symptoms, and they may monitor the situation without immediate intervention. The patient has a scheduled appointment with the agency director in May 2025 for further evaluation, including potential skin testing. - Reviewed and discussed previous records. - Continue to monitor rashes and any associated symptoms. - Follow up with the agency director as scheduled. - Discuss potential triggers and management strategies during the next visit. Hives 03/04/2025 Assessment & Plan (03/06/2025 3:44 PM EDT): The patient exhibits dermatographia, recurrent rashes, and hives, and reports a history of possible angioedema triggered by certain foods, prompting a referral to allergy for allergy testing. Recommend allergy eval Her hair thinning is noted as possibly related to iron issues. The physician has no explanation for the patient's unusual fluctuation in iron and ferritin levels (initial increase followed by a decrease) but confirms the patient will have a telemedicine follow-up with hematology today. Orders: Pulmonary Function Test Reason for Exam: Dyspnea/Shortness of Breath; Type of PFT Test: Spirometry with bronchodilator, DLCO, Lung Volumes; Performing Location: External; Future ROE positive 03/04/2025 Assessment & Plan (03/06/2025 3:44 PM EDT): The patient presents with a positive ROE at 1:1280 and elevated eosinophils, but no lymphopenia. Her Scl-70 antibody is elevated. Clinically, she reports chest pain and shortness of breath when running, as well as a history of SVTs. She has experienced Raynaud's phenomenon in her toes for several years, though without digital ulcerations. No telangiectasias, calcinosis, or sclerodactyly on examination but she does have dermatographia and eosinophilia, with recurrent rashes Given lack of synovitis, joint pain, AM stiffness, lymphopenia, I doubt that she has systemic lupus erythematosus However given positive scleroderma antibody, skin changes with eosinophilia and rashes, Raynaud's in her toes, and more recent cardiac and pulmonary manifestations, I would want to keep an eye on the possibility that she is developing a scleroderma-like condition To further investigate her symptoms, especially the chest pain and shortness of breath, I will order pulmonary function tests (PFTs). If there are any abnormalities in the DLCO or if her chest pain and shortness of breath persist, consider CT chest to rule out interstitial lung disease, a condition that can be associated with scleroderma. Lung exam normal today. Monitor for any new symptoms or changes in her condition that may warrant further investigation. Orders: Pulmonary Function Test Reason for Exam: Dyspnea/Shortness of Breath; Type of PFT Test: Spirometry with bronchodilator, DLCO, Lung Volumes; Performing Location: External; Future Hair thinning 03/04/2025 Assessment & Plan (03/06/2025 3:44 PM EDT): Reviewed hair thinning concerns; will follow up with hematology regarding iron levels and potential deficiencies. Raynaud's disease without gangrene 03/04/2025 Assessment & Plan (03/06/2025 3:44 PM EDT): There is no evidence of gangrene, sclerodactyly, or telangiectasias, and its relation to her other symptoms remains unclear. Dyspnea 03/04/2025 Assessment & Plan (03/06/2025 3:44 PM EDT): Possibly due to exercise-induced asthma, Ordered pulmonary function tests to assess respiratory function and evaluate for exercise-induced asthma. Orders: Pulmonary Function Test Reason for Exam: Dyspnea/Shortness of Breath; Type of PFT Test: Spirometry with bronchodilator, DLCO, Lung Volumes; Performing Location: External; Future Ventricular tachycardia, unspecified 12/08/2024 Assessment & Plan (12/08/2024 8:05 PM EDT): Followed by pediatric cardiology. She is s/p ablation however she is still symptomatic with exercise. Follow up results of stress. Stress test can not be completed until concussion resolves. Concussion with no loss of consciousness Assessment & Plan (12/08/2024 8:07 PM EDT): On November 01 patient sustained head injury while playing indoor soccer. She was diagnosed with concussion based on symptom presentation. 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 She she is followed closely by the job trainer and has also seen the team doctor. She has not yet passed the concussion impact test. I have referred patient to [facility] [place]. Chest pain 05/04/2024 Overview (05/04/2024): 05/01/24 - seen by cardiology; diagnosed with benign chest wall pain; Assessment & Plan (03/06/2025 3:44 PM EDT): She is already under the care of cardiology, and her echocardiogram is normal. She will continue to follow up for her ongoing symptoms. Supraventricular tachycardia 04/17/2024 Overview (05/11/2024): 04/2024- diagnosed by Laura plascencia; followed by Dr. Jha; EP evaluation planned. Encounter for gynecological examination without abnormal finding 11/15/2022 Assessment & Plan (05/01/2024 2:50 PM EDT): Impression: Normal Annual examination without pap smear Plan: Pap smear due at age 21 Contraception: Junel, risk reviewed and RF provided Mammogram: recommended yearly at age 40 RTO in one year or as needed Assessment & Plan (11/15/2022 4:44 PM EST): Narrative Writer annual without pelvic exam <21 yo without concerns and OCP follow up Exam limited at pt's request today Pt very happy with OCPs for management of painful menses, risk reviewed for OCPs and RF provided RTO one year Left ovarian cyst 10/24/2021 Overview (10/24/2021): U/S done in ED on 10/24/21. Irritable bowel syndrome with constipation 10/05 Overview (03/05/2022): ED visit 09/2021. 10/30/21 - GI visit; probable long-standing IBS; started on Culturelle bid; work up ordered to r/o celiac and IBD and u/s for evaluation of biliary pathology 02/12/22 - normal endoscopic exam; likely IBS. Assessment & Plan (10/06/2021 7:48 AM EST): Mother reports that the patient has a h/o of constipation, and she states that her current symptoms have been different. Complains of abdominal pain which has been worsened in the mornings, and mentions that the patient has texted the mother that her pain has almost doubled over, and she has been sweating due to the pain. Reports that she has been going to the bathroom every day, and mentions that today she passed the bowels twice so she does not think her symptoms are due to constipation. Patient reports that her symptoms have been worsening for a couple of days. Mother mentions that her stools were like a ''big pile of mush''. Denies vomiting, but complains of nausea. She does not have fevers or cold and cough symptoms. Reports that she experiences her pain in the whole abdomen and denies any localized pain. Approves of having chest discomfort, which hasn't been on going with the abdominal pain. The patient approves of experiencing heartburn and brackish burps at times. She has not had any known exposures. Patient is vaccinated against COVID-19. Approves of voiding well. Her appetite is affected at times of abdominal discomfort. Denies identifying any triggering foods. Discussed that she is having symptoms of a possible viral gastroenteritis as well as possible heartburn. Explained that there is the possibility of stool seepage when significantly constipated however that does not seem to be the problem at this time as she has been having bowel movements fairly well prior to her recent symptoms. Informed that this may have to be looked into further with an xray if her symptoms persist. Suggested giving pepcid, twice a day (morning and at night) for a few days to see if it helps her symptoms. Advised to take probiotics twice a day to help with the ongoing digestive issues and the current loose stools she is experiencing. Informed that she can take probiotics twice a day while she is symptomatic with the diarrhea and the upset stomach, and then she can drop to once a day when the symptoms are improved Discussed GI symptoms from COVID-19. Suggested testing for Covid, mother declined. Advised to be cautious of the diet, and advised against over stimulating an upset stomach. Suggested GI consultation for chronic issues. Discussed GERD, and discussed the effects of pepcid. Instructed to follow up as needed if the symptoms are not improving of if she has any worsening of her symptoms. Menorrhagia with irregular cycle 08/03/2021 Assessment & Plan (08/03/2021 10:17 AM EDT): New pt to our practice Heavy and campy menses since menarche, not significantly improved after two types of OCPs, pt reports 8-10 day cycle and often BTB Pt is not open to LARC options Will trial monophasic OCP: Loestrin Pt educated to take pill nightly at same time, how to handle missed pills. If discomfort continued pt aware pelvic exam and/or pelvic US maybe indicated Risk with OCPs reviewed with pt and her Mom today RTO in 3 months Pt to change to new OCP this Saturday Dysmenorrhea 09/21/2020 Assessment & Plan (11/02/2021 1:04 PM EST): Pt doing well with OCPs, happy with results, shorter painless menses Pt desires to continue to use, pt aware of risks with OCPs, RF provided Pt more recently struggling with GI issues, Mom stating GI issues were occurring prior to starting OCPs. Incidental 2.5 left follicle noted on recent pelvic US, no follow up required at this time. (pt's pain at time of US was right sided) RTO one year Heart murmur 09/16/2018 Well adolescent visit without abnormal findings 09/10/2017 Assessment & Plan (09/21/2022 3:37 AM EST): Growth: Her height was 5 feet 3.25 inches and today she is 5 feet 5.5 inches. Vitals were reviewed and are normal. Growth curve reviewed and discussed with the parent. Development: Age appropriate development discussed. Sleep: Sleeps well. Nutrition: Tries to eat healthy. She does eat fruits but is picky with vegetables. Recommended eating a healthy and well-balanced diet, including eating fruits and vegetables. Elimination: Her voiding and bowel habits are normal. No constipation concerns. Hygiene: Advised to apply sunscreen when exposed to direct sunlight or as needed. Social Screening: Denies cigarette smoking, vaping, marijuana, or drugs of any kind. Occasionally drinks alcohol. We did review risky teen behaviors and safety around drinking. Gynecology/Menstrual History: She is on control(Microgestin), and her prescriber is Xiao Guevara. She has benefited from control medication. Regular periods. STD screening: She is sexually active with a female. Defer STD screening for now. Physical activity: She is physically active. Plays soccer year around. She does go to the gym. Mental health screening: Manageable stress level. Dental screening: Regularly follows up with the dentist every 6 months. Takes care of her teeth. Vision screening: Vision in both eyes is 20/20. Ordered Visual acuity screening. Immunization: Defer vaccination for today. Recommended flu, Bivalent COVID-19, and meningococcal B vaccine vaccine. Safety: Discussed car safety. Medication: She has a diagnosis of irritable bowel syndrome and she is on Levsin as needed for the same with benefits. She is on amitriptyline for abdominal discomfort. She is on control(Microgestin). Reviewed and reconciled the previous medication list. Resolved Problems Problem Noted Date Diagnosed Date Resolved Date Diarrhea 10/05/2021 08/19/2023 Assessment & Plan (10/06/2021 2:12 AM EST): Refer generalized abdominal pain Encounters Date Type Department Care Team Description 08/05/2025 Refill [facility] [address] [place] [address] [id number] Lawanda Monzon PA-C Medication Refill 07/09/2025 Orders Only [facility] [address] [place] [address] [id number] Whitney Linares DO Hair loss (Primary Dx) from Last 3 Months Immunizations Immunization Administration Dates Next Due DTaP, unspecified formulation 07/27/2009 ,10/28/2006,01/18/2006,11/21,2005 HPV9 03/18/2019,09/16/2018 Hepatitis A, Unspecified 01/27/2007,07/29/2006 Hepatitis B, unspecified formulation ,2005,2005,07/19 Hib, unspecified formulation 10/28/2006, 01/18/2006,2005,09/28 INFLUENZA, SPLIT VIRUS, TRIV ALENT W/ PRESERVATIVE IM 07/12/2008,07/23/2007,08/29/2006,07/29 Influenza Quadrivalent Prese rvative Free IM 09/21/2021,09/21/2020,07/23/2007 Influenza quadrivalent nasal 08/10/2011,07/24/20 10 Influenza, Unspecified Formulation 08/10/2011, MMR 07/27/2009,07/29/2006 Measles / Rubella 07/27/2009,07/29/2006 Meningococcal MCV4P 09/21/2021,08/01/2016 Pneumococcal conjugate, PCV 7 07/29/2006 ,01/18/2006,2005,09/28 Pneumococcal, Unspecified Formulation ,01/18/2006,2005,09/28 Polio, Unspecified Formulation 9,01/18/2006,2005,09/28 Tdap 08/01/2016 Varicella 07/27/2009,10/28/2006 Family History Medical History Relation Comments Hypothyroidism Father Lung cancer Maternal Grandfather primary jose er cancer, but found lungs Heart attack Maternal Grandmother collagenous colitis Maternal Grandmother COPD Paternal Grandfather Heart attack Paternal Grandmother 50s Relation Status Comments Father Alive Maternal Grandfather Maternal Grandmother Mother Alive Paternal Grandfather Alive Paternal Grandmother Sister Alive Social History Tobacco Use Types Packs/Day Years Used Date Smoking Tobacco: Never Smokeless Tobacco: Never Tobacco Cessation:Counseling Given: Not Answered Alcohol Use Standard Drinks/Week Comments Never 0 (1 standard drink = 0.6 oz pur e alcohol) Child or Family Care Answer Date Record ed Do you have problems with on e of the following making it difficult for you to work, study, or receive health care? No 12/08/2024 Education Answer Date Recorded Are you interested in more education? Not on denton e 12/08/2024 Are you concerned about your learning, performance, or behavior in school? No 12/08/2024 No 12/08/2024 Yes 12/08/2024 Food Answer Date Recorded Within the past 6 months we worried whether our food would run out before we got money to buy more. Never True 12/08/2024 Within the past 6 months the food we bought just didn't last and we didn't have enough money to get more. Never True Residential Stability Answer Date Recor ded What is your housing situation today? I have aaron sing 12/08/2024 How many times have you move d in the past 12 months? Zero (I did not move) 12/08/2024 Paying for Meds Answer Date Recorded Do you have trouble paying for medicines? No 12/08/2024 Paying Utility Bills Answer Date Record ed Do you have trouble paying your heating or elect ricity bill? No 12/08/2024 Transportation Answer Date Recorded Has the lack of transportati on kept you from medical appointments or from getting medications? No 12/08/2024 Digital Access Answer Date Recorded No 12/08/2024 Yes 12/08/2024 Do you have reliable internet access at home? Ye s 12/08/2024 Do you have a device (e.g., phone, tablet, computer) with a working camera? Yes 12/08/2024 Intimate Partner Violence Answer Date R ecorded Denied Basic Needs Not on file 12/08/2024 In the past 12 months have y ou been in a relationship with a person who hurts, threatens, or tries to control you? No 12/08/2024 Worried food would run out Not on file 12/08 In the past 12 months have y ou been in a relationship with a person who hurts, threatens, or tries to control you? No 12/08/2024 Comments No Sex and Gender Information Value Date Recorded Sex Assigned at Not on file Legal Sex Female 4:34 PM EST Gender Identity Not on file Sexual Orientation Not on file Occupation Industry Job Start Date Job End Date Student [employer] Not on file Not on file Not on file Last Filed Vital Signs Vital Sign Reading Time Taken Comments Blood Pressure 120/70 04/23/2025 12:55 PM EDT Pulse 70 03/25/2025 9:24 AM EDT Temperature 36.6 C (97.8 F) 12/10/2024 3:40 PM EDT Respiratory Rate 16 12/10/2024 3:40 PM EDT Oxygen Saturation 99% 03/25/2025 9:24 AM EDT Inhaled Oxygen Concentration - - Weight 70.8 kg (156 lb) 04/23/2025 12:55 PM EDT Height 166.4 cm (5' 5.51 ) 04/23/2025 12:55 PM E DT Body Mass Index 25.56 04/23/2025 12:55 PM EDT Plan of Treatment Upcoming Encounters Date Type Department Care Team (Late st Contact Info) Description 09/13/2025 1:45 PM EST [facility] [address] [place] [address] Emeka Archer MD [address] [place] [address] 09/16/2025 9:00 AM EST [facility] Visit [facility] [address] [place] [address] Xiao Guevara NP [address] [place] [address] 10/11/2025 4:15 PM EST [facility] [address] [place] [address] Olivia Canales MD [address] [facility] [place] [address] 11/12/2025 3:00 PM EST Office Visit [facility] [address] [place] [address] Black Moreau MD [address] [place] [address] 01/03/2026 Documentation [facility] [address] [place] [address] Emeka Archer MD [address] [place] [address] 04/04/2026 2:30 PM EDT [facility] Visit [facility] [address] [facility] [address] [place] [address] Whitney Linares DO [address] [facility] [address] [place] [address] Health Maintenance Due Date Last Done Comments MENINGOCOCCAL VACCINES (B) (1 of 2 - Standard) 2021 ADOLESCENT UNIVERSAL LIPID SCREENING 2022 HEPATITIS C SCREENING 2023 HIV ONE-TIME SCREENING (18-65 YEARS) 2023 CHLAMYDIA SCREENING 08/19/2024 08/19/2023 INFLUENZA VACCINE (#1) 2025 , 09/21/2020, 08/10/2011, Additional history exists COVID-19 VACCINE ( season) 2025 10/07/2021, 03/08/2021, 02/15/2021 SMOKING Hx and SMOKELESS TOBACCO SCREENING 03/04/2026 03/04/2025 DEPRESSION SCREENING 03/25/2026 03/25/2025, 09/20/20 DEVELOPMENTAL/BEHAVIORAL SCREENING (PHQ, PSC, or SWYC) 03/25/2026 03/25/2025, 09/20/2022, 09/20/2022 TSH LEVEL 07/11/2026 07/11/2025, 04/10/2025 COMBINED DTaP,Tdap,Td (7 - Td or Tdap) 08/01/2026 08/01/2016, 07/27/2009, 10/28/2006, Additional history exists PNEUMOCOCCAL VACCINES (0-49 years) Aged Out 07/29/2006, 07/29/2006, 01/18/2006, Additional history exists No longer eligible based on patient's age to complete this topic HIB VACCINES Completed 10/28/2006, 12/30, 2005, Additional history exists HEPATITIS A VACCINES Completed 01/27/2007, 07/29/20 MMR VACCINES Completed 07/27/2009, 07/29/2006 VARICELLA VACCINES Completed 07/27/2009, 10/28/2006 HPV VACCINES Completed 03/18/2019, 09/16/2018 MENINGOCOCCAL VACCINES (ACWY) Completed 09/21/2021, 08/01/2016 Medical Devices Not on file Procedures Procedure Name Priority Date/Time Associated Diagnosis Comments THYROPEROXIDASE (TPO) ANTIBODIES Routine 07/11/2025 12:36 PM EDT Hair loss TSH WITH CASCADE Routine 07/11/2025 12:3 6 PM EDT Hair loss CHLAMYDIA TRACHOMATIS AND NEISSERIA GONORRHOEAE NUCLEIC ACID DETECTION Routine 08/19/2023 2:18 PM EST Well adolescent visit without abnormal findings from Last 3 Months or Most Recently Relevant to Health Maintenance Results * TSH with [place] (07/11/2025 12:36 PM EDT) TSH [place] 1.447 0.463 - 3.980 u[iU]/mL [facility] 07/11/2025 12:3 6 PM EDT Whitney Linares LAB BLOOD BKR [place] [address], [facility] [phone] * (ABNORMAL) Thyroperoxidase (TPO) antibodies (07/11/2025 12:36 PM EDT) Thyroid Peroxidase Antibodies 307(H) 0 - 60 [iU]/mL [facility] 07/11/2025 12:3 6 PM EDT Whitney Linares DO LAB BLOOD BKR ORDERABLES Final Result Performing Organization Address City/[facility]/[place]IP [place] [address], [facility] [phone] * Chlamydia Trachomatis and Neisseria Gonorrhoeae Nucleic Acid Detection (08/19/2023 2:18 PM EST) Chlamydia RADHA Negative Negative [facility] Gonorrhea RADHA Negative Negative [facility] Urine 08/19/2023 2:18 PM EST Narrative [facility] - 08/20/2023 10:41 AM EST Chlamydia & GC Source: Urine Anitra aMrques MD LAB GENERAL ORDERABLES Final Result [place], [place] [address] [phone] from Last 3 Months or Most Recently Relevant to Health Maintenance Insurance [facility] [employer] PPO Care Teams Log Handler Relationship Specialty Start Date End Date Whitney Linares DO [address] [facility] [address] [place] [address] [email or web address] PCP - General Family Medicine 07/02/24 Anitra Marques MD [address] [facility] [address] [place] [address] [email or web address] Historical LMR Provider 12/11/18 Additional Source Comments The information contained in this document represents components of the legal health record. It is not the complete legal health record.[facility]
--- OUTSIDE RECORDS SUMMARY | 2025-09-04 12:16 | XMS_ITS | Encounter Summary ---
Author Organization [facility] Address [address] [place] [address] Care Team Providers Care Cupola Melter Name Role Phone María Elena Castelan MD Primary Care Provider Anitra Kulkarni Primary Care Provider [phone] Encounter Details Date Type Department Care Team (Late st Contact Info) Description 01/03/2015 Orders Only [facility] [address] [place] [address] Neyda Dove NP [address] [place] [id number] Social History Tobacco Use Types Packs/Day Years Used Date Smoking Tobacco: Never Assessed Comments Unknown Sex and Gender Information Value Date Recorded Sex Assigned at Not on file Legal Sex Female 9:23 PM EDT Gender Identity Not on file Sexual Orientation Not on file documented as of this encounter Progress Notes * Neyda Dove NP - 01/05/2015 9:11 AM EDTQuick Note: UCX negative. documented in this encounter Plan of Treatment Not on file documented as of this encounter Procedures * Due to [place] state law, this organization might not be sharing negative HIV tests. Procedure Name Priority Date/Time Associated Diagnosis Comments CULTURE, URINE, ROUTINE Routine 01/03/2015 5:15 PM EDT Difficult or painful urination documented in this encounter Results * Due to [place] state law, this organization might not be sharing negative HIV tests. * CULTURE, URINE, ROUTINE (01/03/2015 5:15 PM EDT) Bacteria culture (Urine) SEE NOTE [facility] Comment: {CULTURE, URINE, ROUTINE {[id number]) CULTURE, URINE, ROUTINE MICRO NUMBER: [id number] TEST STATUS: FINAL SPECIMEN SOURCE: URINE SPECIMEN QUALITY: ADEQUATE RESULT: No Growth 01/03/2015 5:15 PM EDT 01/04/2015 12:30 AM EDT Narrative Resulting Agency Comment [id number] Neyda Dove NP LABORATORY Final Result Performing Organization Address City/State/[facility] Co de Phone Number [facility] [address] [place] [address] documented in this encounter Visit Diagnoses Diagnosis Difficult or painful urination Dysuria documented in this encounter Care Teams Cupola Melter Relationship Specialty Start Date End Date María Elena Castelan MD PCP - General 05 05/16/16 Anitra Marques [facility] [address] [address] PCP - General Pediatrics 05/17/16 documented as of this encounter
--- OUTSIDE RECORDS SUMMARY | 2025-09-04 12:16 | XMS_ITS | Clinical Summary ---
Author Organization [facility] Address [address] [place] [address] Care Team Providers Care Video Tape Editor Name Role Phone Duc Marquesdanita Fenton Primary Care Provider [phone] Allergies No known active allergies Medications No known medications Active Problems Problem Noted Date Diagnosed Date Supraventricular tachycardia 05/07/2024 Ventricular tachycardia 05/07/2024 Constipation 08/20/2011 Overview (09/13/2015): Has used Miralax off and on. Nearly daily complaint of stomach ache. Update - did very well on daily Miralax, changed to Pedialax at recommendation of [facility], symptoms recurred when off Pedialax for several weeks. Encouraged to go back on medication. Still's murmur 01/12/2011 Overview (02/18/2014): . Routine health maintenance 07/26/2010 Immunizations Immunization Administration Dates Next Due COVID-19, mRNA (Pfizer Pre F all 2022) Monovalent, 30 mcg/0.3 ml 10/07/2021,03/08/2021,02/15/2021 DTaP 07/27/2009, 7,01/18/2006,11/21,2005 HIB (PRP-T) 10/28/2006, 6,2005,09/28 HPV9 (Gardasil 9) 03/18/2019,09/16/2018 Hep A 01/27/2007,07/29/2006 Hep B (pedi) 01/18/2006, 6,2005,07/19 IPV 07/27/2009, 6,2005,09/28 Influenza Virus Vaccine Splt 6-35mo 07/23/2007 Influenza,injectable,quad,Prsrv Fr 09/21/2021, Influenza,live,intranasal,tr ivalent (Flumist) 08/10/2011,07/24/2010 Influenza,seasonal,trivalent ,preservat med (FLUZONE MDV) 08/29/2006,07/29/2006 MMR 07/27/2009,07/29/2006 Measles/Rubella 07/27/2009,07/29/2006 Meningococcal ACWY (Menactra) 09/21/2021, 016 PCV-7 07/29/2006, 6,2005,09/28 State Influenza Virus Vaccin e Splt 3yrs+ 07/12/2008 Tdap 08/01/2016 Varicella 07/27/2009,10/28/2006 Family History Medical History Relation Name Comments Gastrointestinal Disorder Maternal grandmother colitis - otsomy Gastrointestinal Disorder Maternal uncle IBS Relation Name Status Comments Maternal grandmother Maternal uncle Sister Alive Clarisa Social History Tobacco Use Types Packs/Day Years Used Date Smoking Tobacco: Never Smokeless Tobacco: Never Comments Unknown Sex and Gender Information Value Date Recorded Sex Assigned at Not on file Legal Sex Female 9:23 PM EDT Gender Identity Not on file Sexual Orientation Not on file Last Filed Vital Signs Vital Sign Reading Time Taken Comments Blood Pressure 112/72 05/01/2024 9:36 AM EDT Pulse 78 05/01/2024 9:36 AM EDT Temperature 37 C (98.6 F) 08/29/2019 9:30 AM EST Respiratory Rate 18 08/29/2019 9:30 AM EST Oxygen Saturation 98% 05/01/2024 9:36 AM EDT Inhaled Oxygen Concentration - - Weight 69.3 kg (152 lb 12.8 oz) 05/01/2024 9:36 AM EDT Height 166.5 cm (5' 5.55 ) 05/01/2024 9:36 AM ED T Body Mass Index 25 05/01/2024 9:36 AM EDT Plan of Treatment Health Maintenance Due Date Last Done Comments Hepatitis C Screening 2005 Chlamydia 2021 COVID-19 Vaccine ( season) 2025 10/07/2021, 03/08/2021, 02/15/2021 Influenza (#1) 2025 09/21/2021, 08/31, 08/10/2011, Additional history exists DTaP/Tdap/Td (7 - Td or Tdap) 08/01/2026 08/01/2016, 07/27/2009, 10/28/2006, Additional history exists Zoster (Shingrix) (1 of 2) 2055 07/27/2009, Hep B Completed 01/18/2006, 11/01, 2005, Additional history exists Pneumococcal Aged Out 07/29/2006, 12/30, 2005, Additional history exists No longer eligible based on patient's age to complete this topic Hib Completed 10/28/2006, 12/30, 2005, Additional history exists Hep A Completed 01/27/2007, 07/29/2006 Chest Imaging Discontinued 01/28/2007 MMR Completed 07/27/2009, 07/29/2006 Polio (IPV/OPV) Completed 07/27/2009, 12/30, 2005, Additional history exists Varicella Completed 07/27/2009, 10/28/2006 Eye/Retina Exam Discontinued 10/21/2014, 09/22/2013 HPV Vaccine Completed 03/18/2019, 09/16/2018 Meningococcal ACWY Completed 09/21/2021, 08/01/2016 EKG Discontinued 05/01/2024, 09/20/2015 Procedures * Due to [place] state law, this organization might not be sharing negative HIV tests. Procedure Name Priority Date/Time Associated Diagnosis Comments EKG-USE ONLY IN READYMED/OCC MED/CARDIO Routine 05/01/2024 9:33 AM EDT Exercise intolerance Palpitations Abnormal ECG XRAY CHEST 2 VIEWS PA & LAT Routine 01/28/2007 9:24 PM EDT Fever from Last 3 Months or Most Recently Relevant to Health Maintenance Results * Due to [place] state law, this organization might not be sharing negative HIV tests. * EKG - READ BY ORDERING PROVIDER (05/01/2024 9:33 AM EDT) VENTRICULAR RATE 60 BPM MUS E EKG SYSTEM ATRIAL RATE 60 BPM MUSE EKG SYSTEM P-R INTERVAL 150 ms MUSE EK G SYSTEM QRS DURATION 78 ms MUSE EK G SYSTEM QT 384 ms MUSE EKG SYSTEM QTC 384 ms MUSE EKG SYSTEM P AXIS 53 degrees MUSE EKG SYSTEM R AXIS 52 degrees MUSE EKG SYSTEM T AXIS 35 degrees MUSE EKG SYSTEM EKG INTERPRETATION Normal sinus rhythm with sinus arrhythmia Normal ECG No previous ECGs available Confirmed by ADIN AMIN ([id number]) on 05/01/2024 2:18:15 PM MUSE EKG SYSTEM 05/01/2024 9:33 AM EDT 05/01/2024 2:18 PM EDT us Adin Amin MD CARDIOVASCULAR-WITH INBSKT RT G Final Result MUSE EKG SYSTEM * XRAY CHEST 2 VIEWS PA & LAT (01/28/2007 9:24 PM EDT) Pathologist [facility] RADIOLOGY REPORT Chest, 2 views: The cardiomediastinal contour, pulmonary vasculature, and lung louise are within normal limits. Pleural reflections are clear and bony structures are unremarkable. IMPRESSION: No active disease. [facility] (CLIA# [id number]) Anatomical Region Laterality Modality Other 01/28/2007 9:24 PM EDT Narrative 01/29/2007 9:29 AM EDT Reason for Study/History: FEVER 105 WITH COUGH TEST(S) PROCESSED BY [facility] AT PLAN us Emeka Marquez MD GENERAL IMAGING- OTHER Final Re sult from Last 3 Months or Most Recently Relevant to Health Maintenance Insurance [employer] FEE FOR SERVICE PPO [place] FEE FOR SERVICE PPO * Guarantor: SANGITA FUNK Account Type Relation to Patient Date of Phone Billing Address [facility] [address] [place] [address] [employer] Care Teams Video Tape Editor Relationship Specialty Start Date End Date Anitra Marques [facility] [address] [address] PCP - General Pediatrics 05/17/16
[2025-09-04 12:22] LABS: Alanine Aminotransferase 23 U/L (0-31); Albumin Level 4.6 g/dL (3.5-5.0); Alkaline Phosphatase 60 U/L (39-117); Anion Gap 12 (12-20); Aspartate Amino Transferase 29 U/L (5-31); Blood Urea Nitrogen 9 mg/dL (9-16); Calcium 9.5 mg/dL (8.4-10.2); Carbon Dioxide 24 mmol/L (22-29); Chloride 109 mmol/L (96-108); Creatinine Clr Calc Pharmacy 100.9; Estimated Glomerular Filt Rate > 60; Magnesium 1.9 mg/dL (1.6-2.6); Potassium 4.0 mmol/L (3.3-5.1); Sodium 141 mmol/L (135-145); Total Protein 7.6 g/dL (6.5-8.0)
[2025-09-04 16:32] VITALS: BP 117/76; PULSE 81; RESP 18; TEMP 36.8; O2SAT 98
[2025-09-04 16:41] VITALS: BP 117/76; PULSE 81; RESP 18; TEMP 36.8; O2SAT 98
== END 2025-09-04 17:20 | disposition home or self-care (01) ==
PROVIDERS: Physician Assistant Medical; Emergency Provider Emergency Medicine
DX: R10.31 Right lower quadrant pain (principal); R11.0 Nausea
CPT/HCPCS: 36415; 74177; 80053; 83735; 84702; 85025; 86140; 96374; 99284; J1885

== ENCOUNTER → 2025-09-04 12:16 | Outpatient (BNV) | payer OTHER, SELFPAY | PROVIDERS: Emergency Provider Emergency Medicine; Visit Provider Specialist | DX: R10.31 Right lower quadrant pain (principal) | CPT/HCPCS: 74177 ==